=== PATIENT | male | born 1995 | race Hispanic/Latino ===

== ENCOUNTER 2022-02-03 21:06 | Emergency (ER) | payer BC ==
[~2022-02-03] VITALS: Ht 170.2 cm; Wt 81.7 kg
[2022-02-04] MEDS ORDERED: ONDANSETRON ODT8 MG PO (00:13)
== END 2022-02-04 00:24 | disposition home or self-care (01) ==
LOC: ED 21:06
DX: R10.9 Unspecified abdominal pain (principal)
CPT/HCPCS: 36415; 80053; 81003; 83690; 85025; 96361; 96374; 99284-25; A9270; J2405; J7030